=== PATIENT | male | born 1935 | race Caucasian/White ===

== ENCOUNTER 2019-10-20 10:25 | Inpatient (IN) ==
[2019-10-20 10:57] LABS: Basophils % 0.4 %; Eosinophils % 4.8 %; Hemoglobin 12.5 g/dL (12.9-16.9); Immature Granulocytes % 0.4 % (0-4)
[2019-10-20 10:58] LABS: Eosinophils # 0.3 K/mcL (0.0-0.6); Hematocrit 37.3 % (37.5-50.1); Immature Platelets 5.2 % (1.1-6.1); Lymphocytes # 0.9 K/mcL (0.6-4.6); Lymphocytes % 16.8 %; Mean Corpuscular HGB Conc 33.5 g/dL (31.6-35.5); Mean Corpuscular Hemoglobin 31.3 pg (28.0-33.3); Mean Corpuscular Volume 93.3 fL (83.0-100.0); Mean Platelet Volume 10.9 fL (9.4-12.4); Monocytes # 0.4 K/mcL (0.0-1.3); Monocytes % 7.4 %; Neutrophils # 3.8 K/mcL (1.6-8.9); Platelet Count 121 K/mcL (140-400); Red Cell Distribution Width 13.6 % (11.5-14.5); Segmented Neutrophils % 70.2 %; White Blood Count 5.4 K/mcL (4.3-11.1)
[2019-10-20 11:06] LABS: INR 2.6; Prothrombin Time 29.6 Seconds (9.4-12.1)
[2019-10-20 11:09] LABS: Activated Partial Thrombo Time 35.8 Seconds (26.0-36.0)
[2019-10-20 11:26] LABS: Calcium 10.1 mg/dL (8.6-10.3); Potassium 4.1 mEq/L (3.5-5.1); Troponin I 0.03 ng/mL (< 0.04)
[2019-10-20] MEDS ORDERED: Morphine Sulfate 2 MG/ML SYRINGE IVP ONE (11:47)
[2019-10-20] MEDS ORDERED: Bacitracin/Polymyxin B PACKET TP STA (11:48)
[2019-10-20] MEDS ORDERED: Naloxone 0.4 MG/ML INJ IVP PRN (12:26)
[2019-10-20] MEDS ORDERED: *HR* Metoprolol 5 MG/5 ML VIAL IVP PRN (12:28)
[2019-10-20] MEDS ORDERED: Morphine Sulfate 2 MG/ML SYRINGE IVP PRN ×2 (12:29→13:11)
[2019-10-20] MEDS ORDERED: Acetaminophen 325 MG TABLET PO PRN (12:34)
[2019-10-20 12:48] LABS: Bilirubin,Urine Negative (Negative); Blood,Urine Trace (Negative); Clarity,Urine Clear (Clear); Color,Urine Light-Yellow (Yellow); Glucose,Urine (UA) Normal (Normal); Hyaline Casts,Urine Few per lpf (None Seen); Ketones,Urine Negative (Negative); Leukocyte Esterase,Urine Negative (Negative); Mucus,Urine Few per lpf (None-Few); Nitrite,Urine Negative (Negative); Protein,Urine Negative (Neg-Trace); RBC,Urine 0-3 per hpf (0-3); Specific Gravity,Urine 1.011 (1.010-1.025); Urobilinogen,Urine Normal (Normal); WBC,Urine 0-3 per hpf (0-3)
[2019-10-20] MEDS ORDERED: *HR* Heparin 5,000 UNIT/ML VIAL IVP ONE (13:03)
[2019-10-20] MEDS ORDERED: *HR* Heparin 5,000 UNIT/ML VIAL IVP PRN ×2 (13:03)
[2019-10-20] MEDS ORDERED: Heparin 25,000 UNIT/250 ML D5W 25,000 UNIT/250 ML IV.SOLN IVC SCH (13:15)
[2019-10-20] MEDS ORDERED: *HR* FentaNYL (PF) 100 MCG/2 ML VIAL IVP ONE (13:51)
[2019-10-20] MEDS ORDERED: *HR* Heparin 5,000 UNIT/ML VIAL SQ SCH (14:00)
[2019-10-20] MEDS: *HR* HYDROcodone/Acet 5/325 mg TABLET PO PRN (17:13)
[2019-10-20] MEDS: carvediloL 25 MG TABLET PO SCH (17:13)
[2019-10-21] MEDS: *HR* HYDROcodone/Acet 5/325 mg TABLET PO PRN (04:32)
[2019-10-21] MEDS: carvediloL 25 MG TABLET PO SCH ×2 (08:04→17:39)
[2019-10-21] MEDS ORDERED: Furosemide 40 MG TABLET PO SCH (09:15)
[2019-10-21] MEDS ORDERED: Aspirin Enteric Coated 81 MG Tablet PO SCH (09:15)
[2019-10-21] MEDS ORDERED: FLUoxetine 20 MG CAPSULE PO SCH (09:15)
[2019-10-21] MEDS ORDERED: allopurinoL 100 MG TABLET PO SCH (09:15)
[2019-10-21] MEDS ORDERED: *HR* Propofol 200 MG/20 ML VIAL IVP ONE ×2 (16:39→20:57)
[2019-10-21] MEDS ORDERED: Heparin 1,000 UNITS/500 mL 500 ML ONE (16:40)
[2019-10-21] MEDS ORDERED: Lidocaine -MPF 2% 2 ML VIAL ONE ×3 (16:41→20:56)
[2019-10-21] MEDS ORDERED: *HR* Succinylcholine 200 MG/10 ML VIAL IVP ONE (16:41)
[2019-10-21] MEDS ORDERED: Lidocaine HCL 4 ML Topical Solution (Laryng-O-Jet Kit Sterile Pak) TP ONE (16:41)
[2019-10-21] MEDS ORDERED: Ondansetron 4 MG/2 ML VIAL ONE ×2 (16:41→22:00)
[2019-10-21] MEDS ORDERED: *HR* Etomidate 40 MG/20 ML VIAL IVP ONE (16:42)
[2019-10-21] MEDS ORDERED: Ropivacaine/PF 0.5% 30 ML VIAL ONE (16:55)
[2019-10-21] MEDS ORDERED: Ethanol\\Acetic Acid\\Na Ace\\Ben 1,000 ML IRRIG.SOLN IR ONE (18:56)
[2019-10-21] MEDS ORDERED: Vancomycin 1,000 MG VIAL ONE (18:56)
[2019-10-21] MEDS ORDERED: CeFAZolin Syr 2,000MG/20 ML 2,000 MG/20 ML SYRINGE IVPB ONE (20:24)
[2019-10-21] MEDS ORDERED: *HR* FentaNYL (PF) 100 MCG/2 ML VIAL ONE ×2 (20:30→21:26)
[2019-10-21] MEDS ORDERED: *HR* Rocuronium Bromide 50 MG/5 ML VIAL ONE (20:54)
[2019-10-21] MEDS ORDERED: Morphine Sulfate 2 MG/ML SYRINGE IVP PRN ×3 (21:48→23:16)
[2019-10-21] MEDS ORDERED: Ondansetron 4 MG/2 ML VIAL IVP ONE ×2 (21:48→23:16)
[2019-10-21] MEDS ORDERED: Acetaminophen IV 1,000 MG/100 ML BAG ONE (21:52)
[2019-10-21] MEDS ORDERED: Dexamethasone 4 MG/ML VIAL ONE (22:00)
[2019-10-21] MEDS ORDERED: *HR* HYDROcodone/Acet 5/325 mg TABLET PO PRN (23:16)
[2019-10-21] MEDS ORDERED: *HR* Metoprolol 5 MG/5 ML VIAL IVP PRN (23:16)
[2019-10-21] MEDS ORDERED: Acetaminophen 325 MG TABLET PO PRN (23:16)
[2019-10-21] MEDS ORDERED: Naloxone 0.4 MG/ML INJ IVP PRN (23:16)
[2019-10-22] MEDS: CeFAZolin 2 GM/120 ML BAG IVPB SCH ×2 (04:17→11:25)
[2019-10-22 04:50] LABS: Basophils % 0.1 %; Monocytes % 3.3 %; Platelet Count 107 K/mcL (140-400)
[2019-10-22 04:52] LABS: Eosinophils % 0.3 %; Hematocrit 37.6 % (37.5-50.1); Hemoglobin 12.1 g/dL (12.9-16.9); Immature Granulocytes % 0.3 % (0-4); Immature Platelets 4.9 % (1.1-6.1); Lymphocytes # 0.5 K/mcL (0.6-4.6); Lymphocytes % 6.3 %; Mean Corpuscular HGB Conc 32.2 g/dL (31.6-35.5); Mean Corpuscular Hemoglobin 31.3 pg (28.0-33.3); Mean Corpuscular Volume 97.4 fL (83.0-100.0); Mean Platelet Volume 11.2 fL (9.4-12.4); Monocytes # 0.2 K/mcL (0.0-1.3); Red Blood Count 3.86 M/mcL (4.19-5.50); Red Cell Distribution Width 13.9 % (11.5-14.5); Segmented Neutrophils % 89.7 %; White Blood Count 7.3 K/mcL (4.3-11.1)
[2019-10-22 04:53] LABS: Neutrophils # 6.6 K/mcL (1.6-8.9)
[2019-10-22 04:54] LABS: INR 3.2; Prothrombin Time 36.1 Seconds (9.4-12.1)
[2019-10-22 05:09] LABS: Calcium 9.9 mg/dL (8.6-10.3); Magnesium 2.1 mg/dL (1.6-2.6); Phosphorous 3.7 mg/dL (2.7-4.5); Potassium 4.6 mEq/L (3.5-5.1)
[2019-10-22] MEDS: allopurinoL 100 MG TABLET PO SCH (09:09)
[2019-10-22] MEDS: FLUoxetine 20 MG CAPSULE PO SCH ×3 (09:09→20:04)
[2019-10-22] MEDS: carvediloL 25 MG TABLET PO SCH ×2 (09:09→16:18)
[2019-10-22] MEDS: Furosemide 40 MG TABLET PO SCH (09:09)
[2019-10-22] MEDS: Aspirin Enteric Coated 81 MG Tablet PO SCH (09:09)
[2019-10-22] MEDS ORDERED: Warfarin perPT PO PRN (18:00)
[2019-10-22] MEDS ORDERED: *HR* Warfarin 4 MG TABLET PO SCH (18:00)
[2019-10-22] MEDS ORDERED: Aminoglycoside Consult 1 EACH MC ONE (18:19)
[2019-10-23 03:10] LABS: Hematocrit 33.7 % (37.5-50.1); Mean Corpuscular HGB Conc 32.6 g/dL (31.6-35.5); Mean Corpuscular Hemoglobin 31.6 pg (28.0-33.3); Mean Corpuscular Volume 96.8 fL (83.0-100.0); Mean Platelet Volume 11.4 fL (9.4-12.4); Platelet Count 116 K/mcL (140-400); Red Blood Count 3.48 M/mcL (4.19-5.50); Red Cell Distribution Width 13.9 % (11.5-14.5)
[2019-10-23 03:12] LABS: White Blood Count 11.4 K/mcL (4.3-11.1)
[2019-10-23 03:18] LABS: INR 3.6; Prothrombin Time 41.4 Seconds (9.4-12.1)
[2019-10-23 04:25] LABS: Calcium 9.7 mg/dL (8.6-10.3); Potassium 4.6 mEq/L (3.5-5.1)
[2019-10-23] MEDS ORDERED: 0.9 % Sodium Chloride 1,000 ML IVC SCH (07:45)
[2019-10-23] MEDS: allopurinoL 100 MG TABLET PO SCH (08:38)
[2019-10-23] MEDS: Furosemide 40 MG TABLET PO SCH (08:38)
[2019-10-23] MEDS: Aspirin Enteric Coated 81 MG Tablet PO SCH (08:38)
[2019-10-23] MEDS: carvediloL 25 MG TABLET PO SCH ×2 (08:39→16:54)
[2019-10-23] MEDS ORDERED: *HR* Warfarin 4 MG TABLET PO SCH (18:00)
[2019-10-23] MEDS: FLUoxetine 20 MG CAPSULE PO SCH (21:22)
[2019-10-24] MEDS: allopurinoL 100 MG TABLET PO SCH (08:18)
[2019-10-24] MEDS: carvediloL 25 MG TABLET PO SCH ×2 (08:18→17:04)
[2019-10-24] MEDS: Aspirin Enteric Coated 81 MG Tablet PO SCH (08:18)
[2019-10-24 10:52] LABS: Calcium 9.5 mg/dL (8.6-10.3); Potassium 4.1 mEq/L (3.5-5.1)
[2019-10-24 11:06] LABS: INR 1.6; Prothrombin Time 18.2 Seconds (9.4-12.1)
[2019-10-24 17:04] VITALS: BP 116/63
[2019-10-24] MEDS ORDERED: *HR* Warfarin 4 MG TABLET PO ONE (18:00)
== END 2019-10-24 18:20 | DRG 470 ==
LOC: EMEROOARM 10:25 → 3BNU 10:25 → SUATTDRO 12:18 → 3BNU 14:02 → SUATTDRO 10-21 13:04 → 3NENU 10-21 17:06
PROVIDERS: ADMIT Internal Medicine; ATTEND Internal Medicine